=== PATIENT | male | born 1970 | race Hispanic/Latino ===

== ENCOUNTER 2024-09-13 22:53 | Observation (INO) ==
--- NOTE | 2024-09-13 23:10 | Emergency Department Note ---
HPI - Altered Mental Status General Chief Complaint: Altered Mental Status Stated Complaint: hx diabetes, disoriented Source: family and historic interpreter Mode of arrival: walk-in Limitations: language barrier and altered mental status History of Present Illness HPI narrative: This patient is 54 years old male with past medical history of diabetes mellitus, hyperlipidemia, gastroesophageal reflux disease and hypertension who presents to the ED altered and diaphoretic. On presentation patient is found to have low blood glucose. History is limited due to patient's inability to speak [place] Islander and being altered.Patient was diagnosed with diabetes 3 months ago and was started on insulin. However he has had changes in dosage in different clinics initially he was supposed to take 5 units 3 times a day but this has be en changed to 20 units 2 times a day.As per the caregiver the patient was noted to be confused and unable to respond to questions appropriately and was therefore brought to the ED for further evaluation. In the ED blood glucose reading was low and patient was diaphoretic, Confused and lethargic. MD complaint: altered mental status, confusion and weakness Onset (ago): minute(s) Timing confirmed by: family member Severity: severe Consistency of symptoms: constant Context: other (Overdosed of insulin) Related Data Allergies Allergy/AdvReac Type Severity Reaction Status Date / Time No Known Drug Allergies Allergy Verified 09/13/24 23:34 Review of Systems Status of ROS unobtainable due to medical condition [facility] Medical History (Updated 09/13/24 @ 23:51 by Joana Saha RN) Diabetes High cholesterol Hypertension Surgical History (Updated 09/13/24 @ 23:51 by Joana Saha RN) No history of previous surgery Social History (Updated 07/23/24 @ 04:49 by Sarah Arguelles RN) Smoking status: never smoker What is your current living situation: I presently have a place to live Feel stressed/tense/nervous/anxious/difficulty sleeping: not at all Due to disability, difficulty making decisions: No Exam Constitutional: average body habitus Vital Signs - 24 hr 09/13/24 23:24 09/14/24 00:28 Temperature 98.9 F Pulse Rate 51 L Respiratory Rate 13 Blood Pressure 177/96 175/125 Pulse Oximetry 97 Oxygen Delivery Me thod Room Air HENMT: normocephalic, head/scalp atraumatic, hearing grossly normal bilaterally, external ears normal and EACs normal Eyes: PERRL, EOMs intact bilaterally and conjunctivae normal Neck/C-Spine: visual inspection normal, trachea midline, cervical spine nontender and cervical full ROM noted Lymph: no lymphadenopathy noted and no lymphedema noted Chest: inspection of chest normal and palpation of chest normal Respiratory: breath sounds equal bilaterally, normal respiratory effort and clear to auscultation bilaterally Cardiovascular: normal heart rate noted, regular rhythm noted and no gallop Gastrointestinal: abdomen normal to inspection Genitourinary: no CVA tenderness, bladder normal to palpation and external appearance normal Back/Pelvis: spine normal to inspection, no thoracic spine tenderness and no lumbar spine tenderness Extremities: normal to inspection, normal to palpation and no tenderness Neurology: Decreased responsiveness, lethargic and diaphoretic Psychiatry: Decreased responsiveness Skin: Diaphoretic Course Course Hospital Course: 54 years old male with past medical history of diabetes mellitus, hyperlipidemia, gastroesophageal reflux disease and hypertension who presents to the ED altered and diaphoretic. On presentation patient is found to have low blood glucose. History is limited due to patient's inability to speak [place] and being altered.Patient was diagnosed with diabetes 3 months ago and was started on insulin. However he has had changes in dosage in different clinics initially he was supposed to take 5 units 3 times a day but this has been changed to 20 units 2 times a day.As per the caregiver the patient was noted to be confused and unable to respond to questions appropriately and was therefore brought to the ED for further evaluation. In the ED blood glucose reading was low and patient was diaphoretic, Confused and lethargic. This patient has been found to be hypoglycemic requiring ongoing glucose resuscitation. For this reason we will admit for observation to correct his glucose level Labs were also significant for MELISSA with elevated BUN and creatinine and low potassium of 3.2 which we have replenished with 40 mill equivalent p.o. potassium. Patient's sodium is also noted to be elevated for this reason we will give dextrose in water. Patient is also anemic likely an anemia of the chronic disease. Vital Signs Vital signs: Vital Signs Temperature 98.9 F 09/13/24 23:24 Pulse Rate 51 L 09/13/24 23:24 Respiratory Rate 13 09/13/24 23:24 Blood Pressure 177/96 09/13/24 23:24 Pulse Oximetry 97 09/13/24 23:24 Oxygen Delivery Method Room Air 09/13/24 23:24 Temperature 98.9 F 09/13/24 23:24 Pulse Rate 51 L 09/13/24 23:24 Respiratory Rate 13 09/13/24 23:24 Blood Pressure 175/125 09/14/24 00:28 Pulse Oximetry 97 09/13/24 23:24 Oxygen Delivery Method Room Air 09/13/24 23:24 MDM - Altered Mental Status Differential Diagnosis Differential diagnosis: Likely hypoglycemia Medical Records Attestation: I reviewed the patient's medical records. Lab Data Attestation: I reviewed the patient's lab results. Labs: Lab Results 09/13/24 09/13/24 Range/Units 23:00 23:19 WBC 6.5 (3.7-9.6) K/uL RBC 3.4 L (4.40-5.80) M/uL Hgb 10.5 L (14.0-17.4) gm/dL Hct 30.6 L (41.3-50.1) % MCV 91.1 (81.9-96.5) fl MCH 31.4 (27.6-33.7) pg MCHC 34.4 (33.0-35.7) g/dl RDW 13.9 (11.0-14.8) % Plt Count 309 (142-355) K/uL MPV 7.5 (6.0-10.4) fl Gran % 59.6 (49.1-73.1) % Lymph % (Auto) 25.2 (17.6-39.05) % [place] % (Auto) 9.0 (4.5-10.7) % Eos % (Auto) 5.4 H (0.0-4.0) % Baso % (Auto) 0.8 (0.0-1.3) Lymph # (Auto) 1.6 (0.8-2.9) [place] # (Auto) 0.6 (0.2-0.8) Eos # (Auto) 0.3 (0.0-0.3) Baso # (Auto) 0.1 (0.0-0.1) Absolute Gran (auto) 3.9 (2.0-6.2) Sodium 146 H (136-145) mmol/L Potassium 3.2 L (3.6-5.2) mmol/L Chloride 108.0 H (98-107) mmol/L Carbon Dioxide 29 (21-32) mmol/L Anion Gap 9.0 (4-14) mEq/L BUN 46 H (7-18) mg/dL Creatinine 1.4 H (0.6-1.3) mg/dL Estimated GFR 59.0 (>59.9) Glucose 19 L* (70-110) mg/dL Hemoglobin A1c 7.4 H (4.8-6.0) % Calcium 8.9 (8.5-10.1) mg/dL Total Bilirubin 0.31 (0.0-1.0) mg/dL AST 107 H (15-37) U/L ALT 169 H (30-65) U/L Alkaline Phosphatase 73 (50-136) U/L Total Protein 6.8 (6.4-8.2) g/dL Albumin 3.1 L (3.4-5.0) g/dL Discharge Plan Discharge Patient Disposition: Admitted As Observation Condition: Improved Chief Complaint: Altered Mental Status Clinical Impression: Hypoglycemia, Altered mental status, Hyponatremia, MELISSA (acute kidney injury), Anemia in chronic kidney disease Print Language: B[place] Referrals: Provider,NO PCP [Primary Care Provider] - Time of Disposition: 01:39
[2024-09-13] MEDS ORDERED: DEXTROSE 50 % 25 GM/50 ML SYRINGE INJ ONE (23:14)
[2024-09-13] MEDS: DEXTROSE 50 % 25 GM/50 ML SYRINGE INJ ONE (23:15)
[2024-09-13 23:33] LABS: Basophils #(Absolute) Auto 0.1 (0.0-0.1); Basophils%(Percent) Auto 0.8 (0.0-1.3); Eosinophils#(Absolute)Auto 0.3 (0.0-0.3); Eosinophils%(Percent) Auto 5.4 % (0.0-4.0); Granulocytes % - Auto 59.6 % (49.1-73.1); Granulocytes#(Absolute)- Auto 3.9 (2.0-6.2); Hematocrit 30.6 % (41.3-50.1); Mean Corpuscular Volume 91.1 fl (81.9-96.5); Monocytes #(Absolute)- Auto 0.6 (0.2-0.8); Platelet Count 309 K/uL (142-355); White Blood Count 6.5 K/uL (3.7-9.6)
[2024-09-13 23:41] LABS: Potassium 3.2 mmol/L (3.6-5.2)
[2024-09-14] MEDS ORDERED: 0.9 % SODIUM CHLORIDE 1000 ML 1,000 ML IV ONE (00:26)
[2024-09-14] MEDS ORDERED: HYDRALAZINE HCL 20 MG/ML VIAL ONE (00:27)
[2024-09-14] MEDS: HYDRALAZINE HCL 20 MG/ML VIAL INJ ONE (00:28)
[2024-09-14] MEDS ORDERED: 0.9 % SODIUM CHLORIDE 1000 ML 1,000 ML IV SCH (00:30)
[2024-09-14] MEDS ORDERED: DEXTROSE 50 % 25 GM/50 ML SYRINGE INJ ONE (00:57)
[2024-09-14] MEDS ORDERED: ACETAMINOPHEN 325 MG TABLET PO PRN (01:31)
[2024-09-14] MEDS ORDERED: ONDANSETRON HCL/PF 4 MG/2 ML VIAL INJ PRN (01:31)
[2024-09-14] MEDS ORDERED: POTASSIUM CHLORIDE 20 MEQ TAB.ER.PRT PO ONE (01:55)
[2024-09-14] MEDS: PANTOPRAZOLE SODIUM 40 MG VIAL IVP ONE (01:56)
[2024-09-14] MEDS: POTASSIUM CHLORIDE 20 MEQ TAB.ER.PRT PO ONE (01:56)
[2024-09-14] MEDS: HYDRALAZINE HCL 20 MG/ML VIAL INJ PRN (02:41)
[2024-09-14 05:58] LABS: Basophils%(Percent) Auto 0.5 (0.0-1.3); Eosinophils#(Absolute)Auto 0.1 (0.0-0.3); Granulocytes % - Auto 81.4 % (49.1-73.1); Granulocytes#(Absolute)- Auto 5.9 (2.0-6.2); Hematocrit 30.7 % (41.3-50.1); Mean Corpuscular Volume 90.9 fl (81.9-96.5); Monocytes #(Absolute)- Auto 0.3 (0.2-0.8); Monocytes %(Percent)- Auto 4.5 % (4.5-10.7); Platelet Count 294 K/uL (142-355); White Blood Count 7.2 K/uL (3.7-9.6)
[2024-09-14 08:00] VITALS: RESP 16
[2024-09-14] MEDS: DEXTROSE 10 % IN WATER 1,000 ML IV ONE (11:43)
--- NOTE | 2024-09-14 12:19 | Short Stay Summary ---
H&P: HPI History of Present Illness Chief complaint: hx diabetes, disoriented Narrative: This patient is 54 years old male with past medical history of diabetes mellitus, hyperlipidemia, gastroesophageal reflux disease and hypertension who presents to the ED altered and diaphoretic. On presentation patient is found to have low blood glucose. History is limited due to patient's inability to speak [place] and being altered.Patient was diagnosed with diabetes 3 months ago and was started on insulin. However he has had changes in dosage in different clinics initially he was supposed to take 5 units 3 times a day but this has been changed to 20 units 2 times a day.As per the caregiver the patient was noted to be confused and unable to respond to questions appropriately and was therefore brought to the ED for further evaluation. In the ED blood glucose reading was low and patient was diaphoretic, Confused and lethargic. Patient seeing the Health department for his Blood Sugar Review of Systems Status of ROS unobtainable due to medical condition and other (language issues and patient poor historian) Constitutional Reports: fatigue and night sweats; Denies: fever, chills, malaise or change in sleep pattern Eyes Denies: change in vision, blurry vision, blind spots, light sensitivity, eye discomfort or eye discharge Ears, nose, mouth, and throat Denies: throat pain, neck pain, throat swelling or difficulty swallowing Cardiovascular Reports: lightheadedness; Denies: chest pain, palpitations, edema, swelling of feet/ankles or shortness of breath with exertion Respiratory Denies: shortness of breath, cough, wheezing, stridor, pain on inspiration or change in phlegm color Gastrointestinal Reports: constipation; Denies: abdominal pain, nausea, vomiting, coffee grounds in vomit, heartburn, diarrhea, feeling full early, change in bowel habits, painful bowel movements or rectal pain Genitourinary Reports: urinary frequency; Denies: painful urination, urinary urgency, blood in urine, genital pain, genital lesion, penile discharge, testicular pain or difficulty urinating Musculoskeletal Denies: back pain, neck pain, extremity pain or extremity swelling Integumentary/Breast Denies: rash, itching, redness, skin pain, skin tenderness, skin swelling or sores Neurological Reports: numbness in extremities, weakness in extremities, lack of coordination, confusion (JPTA), behavioral changes and slurred speech; Denies: headache, dizziness, vertigo or difficulty communicating thoughts Psychiatric Reports: irritability; Denies: anxiety, mood swings, panic attacks, change in sleep pattern, hopelessness, loss of interest, visual hallucinations, auditory hallucinations, tactile hallucinations, suicidal ideation or homicidal ideation Endocrine Reports: excessive urination, excessive thirst and fatigue; Denies: cold intolerance, excessive sweating, flushing, heat intolerance, deepening of the voice, change in body appearance or change in libido Hematologic/Lymphatic Denies: easy bruising, easy bleeding or enlarged lymph nodes Allergic/Immunologic Reports: seasonal allergies; Denies: hives, throat swelling, tongue swelling, facial swelling, wheezing, itchy eyes or food intolerance PFSH PFS Medical History (Updated 09/14/24 @ 12:13 by Perla Francis DO) Hypoalbuminemia Anemia, normocytic normochromic Asthma GERD with apnea without esophagitis Diabetes High cholesterol Hypertension Surgical History No history of previous surgery Social History Smoking status: never smoker What is your current living situation: I presently have a place to live Problems where you live: no known problems Highest level of school completed/degree received: decline to answer Feel stressed/tense/nervous/anxious/difficulty sleeping: not at all Due to disability, difficulty making decisions: No Meds Home Medications and Allergies Home Medications Medication Instructions Recorded Confirmed Type albuterol sulfate 90 mcg/actuation 2 inh inhalation Q4H PRN SOB 09/14/24 09/14/24 History breath activated powder inhaler aspirin 81 mg tablet,delayed 81 mg PO DAILY 09/14/24 09/14/24 History release atorvastatin 40 mg tablet 40 mg PO BEDTIME 09/14/24 09/14/24 History carvedilol 6.25 mg tablet 6.25 mg PO Q12H 09/14/24 09/14/24 History famotidine 40 mg tablet 40 mg PO DAILY 09/14/24 09/14/24 History insulin human U-100 NPH-regulr 15 unit subcut BID 09/14/24 09/14/24 History 70-30 mix 100 unit/mL subcutaneous susp (Humulin 70/30 U-100 Insulin) pantoprazole 40 mg tablet,delayed 40 mg PO DAILY 09/14/24 09/14/24 History release Allergies Allergy/AdvReac Type Severity Reaction Status Date / Time No Known Drug Allergies Allergy Verified 09/13/24 23:34 Exam Constitutional: abnormal general appearance (disheveled) and (chronically ill), no apparent distress, average body habitus, limitations noted (altered mental status) and (physical limitations) and alert Vital Signs - 24 hr 09/13/24 22:53 09/13/24 23:10 09/13/24 23:30 Temperature 98.9 F Pulse Rate 51 L 50 L 51 L Pulse Rate [Right Brachial] Respiratory Rate 13 16 16 Blood Pressure 177/96 175/97 169/96 Blood Pressure [19 5/96] Pulse Oximetry 97 97 97 Oxygen Delivery [facility] Room Air Room Air Room Air 09/13/24 23:45 09/14/24 00:00 09/14/24 00:15 Temperature Pulse Rate 54 L 62 57 L Pulse Rate [Right Brachial] Respiratory Rate 18 19 18 Blood Pressure 167/110 184/91 183/88 Blood Pressure [19 5/96] Pulse Oximetry 98 96 97 Oxygen Delivery [facility] Room Air Room Air Room Air 09/14/24 00:15 09/14/24 00:28 09/14/24 00:30 Temperature Pulse Rate 72 60 Pulse Rate [Right Brachial] Respiratory Rate 16 17 Blood Pressure 135/76 175/125 175/125 Blood Pressure [19 5/96] Pulse Oximetry 97 98 Oxygen Delivery [facility] Room Air Room Air 09/14/24 00:45 09/14/24 00:58 09/14/24 01:00 Temperature Pulse Rate 50 L 56 L Pulse Rate [Right Brachial] Respiratory Rate 15 18 Blood Pressure 169/95 138/78 138/78 Blood Pressure [19 5/96] Pulse Oximetry 97 97 Oxygen Delivery [facility] Room Air Room Air 09/14/24 01:30 09/14/24 01:45 09/14/24 02:00 Temperature Pulse Rate 73 78 Pulse Rate [Right Brachial] Respiratory Rate 17 18 Blood Pressure 179/99 188/94 Blood Pressure [19 5/96] Pulse Oximetry 97 94 L 97 Oxygen Delivery [facility] Room Air Room Air Room Air 09/14/24 02:08 09/14/24 02:41 09/14/24 02:45 Temperature 97.0 F L Pulse Rate 78 Pulse Rate [Right Brachial] Respiratory Rate 18 24 Blood Pressure 188/94 196/94 Blood Pressure [] 195/96 Pulse Oximetry 97 94 L Oxygen Delivery Me thod 09/14/24 03:28 09/14/24 03:30 09/14/24 07:59 Temperature 97.3 F L 98.1 F Pulse Rate Pulse Rate [Right Brachial] 84 88 Respiratory Rate 22 16 Blood Pressure 150/81 Blood Pressure [] 150/81 155/82 Pulse Oximetry 94 L [facility] HENMT: normocephalic, head/scalp atraumatic, hearing grossly normal bilaterally, external ears normal, EACs normal, TMs abnormal, oral mucous membranes abnormal and dentition abnormal Eyes: PERRL, EOMs intact bilaterally, conjunctivae normal, no scleral icterus and papilledema noted Neck/C-Spine: visual inspection normal, trachea midline, cervical spine nontender and cervical full ROM noted Lymph: no lymphadenopathy noted and no lymphedema noted Chest: inspection of chest normal and palpation of chest normal Respiratory: breath sounds equal bilaterally, normal respiratory effort and clear to auscultation bilaterally Cardiovascular: normal heart rate noted, regular rhythm noted and no gallop Gastrointestinal: abdomen normal to inspection Genitourinary: no CVA tenderness, bladder normal to palpation and external appearance normal Back/Pelvis: spine normal to inspection, no thoracic spine tenderness and no lumbar spine tenderness Extremities: normal to inspection, normal to palpation and no tenderness Neurology: belting inspector II-XII intact, no movement abnormality noted, no focal motor deficit noted, sensory deficit noted, deep tendon reflexes 2+ bilaterally, gait abnormality noted, speech abnormality noted and coordination abnormality noted Decreased responsiveness, lethargic and diaphoretic Psychiatry: Mental Status Exam documented within this Exam's Psych section mental status grossly normal, oriented x3, thought process abnormality noted (confused), uncooperative (withdrawn) and (belligerent), affect abnormality noted (hostile) and psychomotor abnormality noted (agitated) Decreased responsiveness Feel stressed/tense/nervous/anxious/difficulty sleeping: decline to answer Skin: skin color abnormal Reports (pale), rash noted (dry, scaling hands and palms), no lesions, ecchymosis noted, wound(s) noted, laceration(s) noted, skin turgor abnormal Reports (tenting), nails abnormality noted and alopecia noted Diaphoretic Assessment and Plan Assessment and Plan (1) Hypoglycemia associated with type 2 diabetes mellitus: Code(s): E11.649 - Type 2 diabetes mellitus with hypoglycemia without coma (2) Altered mental status: Qualifiers: Altered mental status type: stupor Qualified Code(s): R40.1 - Stupor Code(s): R41.82 - Altered mental status, unspecified (3) ETOH abuse: Code(s): F10.10 - Alcohol abuse, uncomplicated (4) GERD with apnea without esophagitis: Code(s): K21.9 - Gastro-esophageal reflux disease without esophagitis; R06.81 - Apnea, not elsewhere classified (5) Asthma: Qualifiers: Asthma severity: mild Asthma persistence: intermittent Asthma complication type: uncomplicated Qualified Code(s): J45.20 - Mild intermittent asthma, uncomplicated Code(s): J45.909 - Unspecified asthma, uncomplicated (6) Hypoalbuminemia: Code(s): E88.09 - Other disorders of plasma-protein metabolism, not elsewhere classified (7) Elevated liver enzymes: Code(s): R74.8 - Abnormal levels of other serum enzymes (8) Acute renal injury: Code(s): N17.9 - Acute kidney failure, unspecified (9) Dehydration: Code(s): E86.0 - Dehydration (10) Anemia, normocytic normochromic: Code(s): D64.9 - Anemia, unspecified Plan Cautious IV hydration discuss in detail if there is any ETOH abuse as patient has signs of abuse either current or in the past education on diet and medications and risk of hypoglycemia and ways to prevent and to treat accu checks with SSI as needed and every ac and hs neuro exams every 1 hour and prn x 4 and if improved and stable can do with routine vitals and prn repeat labs in the am patient mental status imprved with correction of the Blood sugars Results Labs Labs: CBC WBC 7.2 K/uL (3.7-9.6) 09/14/24 05:11 RBC 3.4 M/uL (4.40-5.80) L 09/14/24 05:11 Hgb 10.9 gm/dL (14.0-17.4) L 09/14/24 05:11 Hct 30.7 % (41.3-50.1) L 09/14/24 05:11 MCV 90.9 fl (81.9-96.5) 09/14/24 05:11 MCH 32.2 pg (27.6-33.7) 09/14/24 05:11 MCHC 35.4 g/dl (33.0-35.7) 09/14/24 05:11 RDW 13.6 % (11.0-14.8) 09/14/24 05:11 Plt Count 294 K/uL (142-355) 09/14/24 05:11 MPV 7.5 fl (6.0-10.4) 09/14/24 05:11 Gran % 81.4 % (49.1-73.1) H 09/14/24 05:11 Lymph % (Auto) 12.6 % (17.6-39.05) L 09/14/24 05:11 [place] % (Auto) 4.5 % (4.5-10.7) 09/14/24 05:11 Eos % (Auto) 1.0 % (0.0-4.0) 09/14/24 05:11 Baso % (Auto) 0.5 (0.0-1.3) 09/14/24 05:11 Lymph # (Auto) 0.9 (0.8-2.9) 09/14/24 05:11 [place] # (Auto) 0.3 (0.2-0.8) 09/14/24 05:11 Eos # (Auto) 0.1 (0.0-0.3) 09/14/24 05:11 Baso # (Auto) 0.0 (0.0-0.1) 09/14/24 05:11 Absolute Gran (auto) 5.9 (2.0-6.2) 09/14/24 05:11 BMP Sodium 144 mmol/L (136-145) 09/14/24 05:11 Potassium 4.0 mmol/L (3.6-5.2) 09/14/24 05:11 Chloride 107.0 mmol/L (98-107) 09/14/24 05:11 Carbon Dioxide 28 mmol/L (21-32) 09/14/24 05:11 Anion Gap 9.0 mEq/L (4-14) 09/14/24 05:11 BUN 46 mg/dL (7-18) H 09/14/24 05:11 Creatinine 1.2 mg/dL (0.6-1.3) 09/14/24 05:11 Estimated GFR 71.0 (>59.9) 09/14/24 05:11 Glucose 201 mg/dL (70-110) H 09/14/24 05:11 Hemoglobin A1c 7.4 % (4.8-6.0) H 09/13/24 23:19 Calcium 8.6 mg/dL (8.5-10.1) 09/14/24 05:11 Total Bilirubin 0.45 mg/dL (0.0-1.0) 09/14/24 05:11 AST 75 U/L (15-37) H 09/14/24 05:11 ALT 147 U/L (30-65) H 09/14/24 05:11 Alkaline Phosphatase 69 U/L (50-136) 09/14/24 05:11 Total Protein 6.2 g/dL (6.4-8.2) L 09/14/24 05:11 Albumin 2.8 g/dL (3.4-5.0) L 09/14/24 05:11 Cardiac Enzymes Troponin I High Sens 35.80 ng/L (4.0-60.4) 09/14/24 00:31 Liver Function Total Bilirubin 0.45 mg/dL (0.0-1.0) 09/14/24 05:11 AST 75 U/L (15-37) H 09/14/24 05:11 ALT 147 U/L (30-65) H 09/14/24 05:11 Alkaline Phosphatase 69 U/L (50-136) 09/14/24 05:11 Total Protein 6.2 g/dL (6.4-8.2) L 09/14/24 05:11 Albumin 2.8 g/dL (3.4-5.0) L 09/14/24 05:11 Pulse Oximetry Attestation: I have reviewed the pertinent pulse oximetry results. ECG Attestation: I have reviewed the pertinent ECG results. DS: Providers Provider Date of admission: 09/14/24 01:31 Primary care physician: NO PCP Provider Admitting clinician: Frederick Woodson Attending physician on admission: Perla Francis Attending physician on discharge: Perla Francis Discharging clinician: Perla Francis Anticipated date of discharge: 09/14/24 DS: Summary Hospital Course Hospital Course: 54 years old male with past medical history of diabetes mellitus, hyperlipidemia, gastroesophageal reflux disease and hypertension who presents to the ED altered and diaphoretic. On presentation patient is found to have low blood glucose. History is limited due to patient's inability to speak Trin[place] and being altered.Patient was diagnosed with diabetes 3 months ago and was started on insulin. However he has had changes in dosage in different clinics initially he was supposed to take 5 units 3 times a day but this has been changed to 20 units 2 times a day.As per the caregiver the patient was noted to be confused and unable to respond to questions appropriately and was therefore brought to the ED for further evaluation. In the ED blood glucose reading was low and patient was diaphoretic, Confused and lethargic. This patient has been found to be hypoglycemic requiring ongoing glucose resuscitation. For this reason we will admit for observation to correct his glucose level Labs were also significant for MELISSA with elevated BUN and creatinine and low potassium of 3.2 which we have replenished with 40 mill equivalent p.o. potassium. Patient's sodium is also noted to be elevated for this reason we will give dextrose in water. Patient is also anemic likely an anemia of the chronic disease. Status at Discharge Functional status at discharge: independent ambulation Overall status at discharge: patient is back to baseline Time Spent with Patient Time attestation: Total time spent providing and/or coordinating discharge services: Time spent: greater than 30 minutes Discharge Plan Discharge Disposition: Home, Self-Care Condition: Improved Discharge Medications: Continued aspirin 81 mg tablet,delayed release (DR/EC) 81 mg PO DAILY Patient Comments: TAKE 1 TABLET BY MOUTH ONCE DAILY atorvastatin 40 mg tablet 40 mg PO BEDTIME Patient Comments: TAKE 1 TABLET BY MOUTH AT BEDTIME carvedilol 6.25 mg tablet 6.25 mg PO Q12H Patient Comments: TAKE 1 TABLET BY MOUTH TWICE DAILY famotidine 40 mg tablet 40 mg PO DAILY Patient Comments: TAKE 1 TABLET BY MOUTH ONCE DAILY Humulin 70/30 U-100 Insulin 100 unit/mL (70-30) suspension 15 unit SUBCUT BID Patient Comments: INJECT 15 UNITS SUBCUTANEOUSLY TWICE DAILY WITH MEALS pantoprazole 40 mg tablet,delayed release (DR/EC) 40 mg PO DAILY Patient Comments: TAKE 1 TABLET BY MOUTH 30 MINUTES TO 1 HOUR BEFORE MORNING MEAL albuterol sulfate 90 mcg/actuation aerosol powdr breath activated 2 inh inhalation Q4H PRN (Reason: SOB) Discharge Orders: Discharge Order (Routine); Ordered 09/14/24 Ordered By: Perla Francis Activity: increase activity as tolerated Diet: diabetic diet Diet Detail: increase water intake daily Interventions: MED/SURG & ICU Observation Charge Sheet Last Done: 09/14/24 06:30 Activity Restrictions/Additional Instructions: follow up PCP for BS on Sunday or he is educated on checking BS prior to meal and if less than 130 BS hold insulin and not take his insulin unless he is eating needs to decrease the insulin 70/30 to 12 units with meals bid and further changes to be discussed with his PCP needs to discuss with PCP about resue glucose gel and or IM glucagon to have at home nutrition consult for the patients diet needs as discussed in the hospital Forms: Portal/Health Info Access Inst Follow-Ups: Provider,NO PCP [Primary Care Provider] -
[2024-09-14 12:32] VITALS: BP 176/93; PULSE 69; TEMP 98.8
== END 2024-09-14 12:42 | disposition home or self-care (01) ==
LOC: ED 22:53 → MS 22:53
PROVIDERS: ADMIT Physician Assistant; ATTEND Family Medicine
DX: E88.09 Other disorders of plasma-protein metabolism, not elsewhere classified; J45.20 Mild intermittent asthma, uncomplicated; E87.1 Hypo-osmolality and hyponatremia; N17.9 Acute kidney failure, unspecified; N18.9 Chronic kidney disease, unspecified; D63.1 Anemia in chronic kidney disease; E11.649 Type 2 diabetes mellitus with hypoglycemia without coma; R74.8 Abnormal levels of other serum enzymes; E86.0 Dehydration; R41.82 Altered mental status, unspecified; F10.10 Alcohol abuse, uncomplicated; R06.81 Apnea, not elsewhere classified; K21.9 Gastro-esophageal reflux disease without esophagitis